=== PATIENT | male | born 1960 | race Caucasian/White ===

== ENCOUNTER → 2017-08-29 | Outpatient (CLI) | payer OTHER ==
--- NOTE | 2017-08-29 15:20 | RAD ---
EXAM: Right tibia/fibula 2 views. HISTORY: Right calf injury and swelling. COMPARISON: None. FINDINGS: No fractures are identified. The joint spaces and alignment of the right knee and ankle are maintained. Subcutaneous edema is noted diffusely throughout the distal leg. IMPRESSION: 1. Subcutaneous edema. No fracture.
--- NOTE | 2017-08-29 15:29 | RAD ---
EXAM: Right lower extremity venous Doppler. HISTORY: Right lower extremity pain/swelling. COMPARISON: None. FINDINGS: Grayscale and Doppler analysis of the right lower extremity deep venous system was performed with graded compression and augmentation. The common femoral, greater saphenous, superficial femoral, popliteal and calf veins were assessed. There is no evidence of deep venous thrombosis bilaterally. There is a fluid collection within the right calf musculature that measures at least 6 cm craniocaudally by probably 1.5 x 1.0 cm transaxially. This does not appear to represent an acute hematoma. Subcutaneous edema is noted on the right. IMPRESSION: 1. No evidence of deep venous thrombosis. 2. Fluid collections within the right calf musculature may represent subacute hematomas, or possibly inferior extension/rupture of a Zamora's cyst. MRI could further evaluate if there is persistent concern. Correlate for evidence of infection to exclude abscess.
== END | disposition home or self-care (01) ==
LOC: US 12:49
PROVIDERS: ATTEND General Practice
DX: M79.661 Pain in right lower leg (principal); M25.471 Effusion, right ankle; M79.89 Other specified soft tissue disorders; R60.9 Edema, unspecified
CPT/HCPCS: 73590; 93971

== ENCOUNTER → 2018-11-15 | Outpatient (CLI) | payer OTHER ==
--- NOTE | 2018-11-15 10:12 | RAD ---
Bilateral hands, 11/15/2018: HISTORY: Hand pain, injury There is a small avulsion fracture along the dorsal margin of the proximal end of the middle phalanx of the right ring finger at the PIP joint. No additional fracture or dislocation is identified. There are minimal scattered degenerative changes. IMPRESSION: Fracture of the proximal end of the middle phalanx of the right ring finger. Electronically signed by: Jose Manuel Villalobos MD (11/15/2018 10:07 AM) [facility]
== END | disposition home or self-care (01) ==
LOC: DXRAD 08:23
PROVIDERS: ATTEND Registered Nurse
DX: S62.624A Displaced fracture of middle phalanx of right ring finger, initial encounter for closed fracture (principal); M19.041 Primary osteoarthritis, right hand; X58.XXXA Exposure to other specified factors, initial encounter; Y93.89 Activity, other specified; Y92.89 Other specified places as the place of occurrence of the external cause; Y99.0 Civilian activity done for income or pay
CPT/HCPCS: 73130